=== PATIENT | male | born 1935 | race Caucasian/White ===

== ENCOUNTER 2022-10-16 17:28 | Emergency (ER) | payer MEDICARE, SELFPAY ==
[2022-10-16] VITALS (7 sets, daily range): BP systolic 124–157; BP diastolic 57–84; PULSE 74–93; RESP 16; TEMP 37.4; O2SAT 88–93; BMI 42.5
--- NOTE | 2022-10-16 18:33 | XRR_ITS ---
PROCEDURE INFORMATION: Exam: XR Chest Exam date and time: 10/16/2022 7:09 PM Age: 86 years old Clinical indication: Fever; Additional info: Fever AMS TECHNIQUE: Imaging protocol: Radiologic exam of the chest. Views: 1 view. COMPARISON: No relevant prior studies available. FINDINGS: Lungs: No consolidation. There is an azygos fissure. Pulmonary vascularity is within normal limits. Linear scar versus atelectasis left lung base. Pleural spaces: Unremarkable. No pleural effusion. No pneumothorax. Heart/Mediastinum: There is cardiomegaly. A pacemaker device is present, and its leads are in appropriate position. Bones/joints: No acute abnormality. XR/XR chest 1V portable 31011 IMPRESSION: No acute findings.
[2022-10-16] MEDS: sodium chloride 0.9% 1,000 ML 999 ML IV (19:24)
[2022-10-16 19:31] LABS: Basophils # 0.1 10^3/uL (0.0-0.1); Basophils % 0.4 %; Eosinophils # 0.2 10^3/uL (0.0-0.8); Eosinophils % 1.7 %; Hematocrit 40.8 % (42.0-52.0); Hemoglobin 13.2 g/dL (11.7-16.6); Lymphocytes # 2.4 10^3/uL (0.8-4.8); Lymphocytes % 18.8 %; Mean Corpuscular HGB Conc 32.4 g/dL (30.0-36.0); Mean Corpuscular Hemoglobin 29.9 pg (28.0-34.0); Mean Corpuscular Volume 92.5 fl (80-94); Mean Platelet Volume 9.2 fL (7.4-10.4); Monocytes % 7.9 %; Neutrophils # 8.85 10^3/uL (1.8-7.7); Neutrophils % 70.9 %; Nucleated Red Blood Cells % 0 %; Platelet Count 179 10^3/cmm (130-400); Red Blood Count 4.41 10^6/uL (4.1-5.3); Red Cell Distribution Width 14.9 % (12.1-15.1); White Blood Count 12.5 10^3/uL (4.0-10.0)
[2022-10-16] MEDS: cefTRIAXone 1,000 MG in sodium chloride 0.9% (plus) 50 ML 100 MG IV (19:45)
[2022-10-16 19:48] LABS: Alanine Aminotransferase 11 U/L (0-41); Albumin Level 3.6 g/dL (3.5-5.2); Alkaline Phosphatase 26 U/L (40-130); Aspartate Amino Transferase 13 U/L (0-40); Blood Urea Nitrogen 15 mg/dL (8-23); Calcium 9.1 mg/dL (8.5-10.5); Carbon Dioxide 28 mmol/L (22-29); Chloride 99 mmol/L (98-107); Globulin 2.8 g/dL (1.3-4.6); Glucose 150 mg/dL (65-115); Osmolality Calculated 280 mOsm/kg (285-295); Sodium 133 mmol/L (136-145); Total Bilirubin 0.6 mg/dL (0.15-1.2); Total Protein 6.4 g/dL (6.6-8.7)
[2022-10-16 19:49] LABS: Lactic Sepsis W/Reflex 1.3 mmol/L (0.5-2.2)
--- NOTE | 2022-10-16 19:56 | PC.NURSE ---
Placed patient on 2L NC due to oxygen saturation dropping to 88%.
--- NOTE | 2022-10-16 20:31 | ED_ITS ---
HPI - Weakness General: Chief complaint: Weakness Stated complaint: possible uti Time Seen by Provider: 10/16/22 18:03 Source: patient and family History of Present Illness: 86-year-old gentleman who presents with weakness and mild mental status changes. He had a 101.4 fever at home according to his . She gave him some Tylenol. He has had urosepsis twice in the last year, and she is worried about this, as his urine has smelled funny. No increased cough. Mild increase in shortness of breath. No sick contacts MD Complaint: generalized weakness and difficulty walking Onset (ago): hour(s) Duration: constant Location: generalized Migration: none Severity: moderate Relieving factors: none Exacerbating factors: exertion Associated symptoms: Reports confusion, dysuria, fever(s) and short of breath; Denies chest pain, chills, melena, decreased appetite, diaphoresis, headache(s), myalgias, nausea, syncope or vomiting Review of Systems Const: Reports: fever(s); Denies: chills or diaphoresis ENMT: Denies: throat pain Card: Denies: chest pain or syncope Resp: Reports: dyspnea; Denies: productive cough or non-productive cough GI: Denies: nausea, vomiting or melena : Reports: dysuria Skin/Breast: Denies: rash Neuro: Reports: confusion; Denies: headache(s) Physical Exam Const: COMMON NORMALS: no acute distress GENERAL APPEARANCE: cooperative; not ill appearing and not frail appearing HENMT: COMMON NORMALS: normocephalic, atraumatic and Normal external nose present HEAD & SCALP: normocephalic and atraumatic FACE & SINUS: normal facial exam and face symmetric NOSE: Normal external nose present Eye: COMMON NORMALS: Equal, round and reactive pupils present and EOMs intact bilaterally PUPIL: Yes Equal, round and reactive pupils present Neck/C-Spine: GENERAL: Yes trachea midline Chest: CHEST: Yes Symmetrical chest wall rise Resp: COMMON NORMALS: normal respiratory effort, No retractions, No use of accessory muscles and clear to auscultation bilaterally AUSCULTATION: clear to auscultation bilaterally Cardio: COMMON NORMALS: regular rate and regular rhythm RATE: regular rate RHYTHM: regular rhythm GI: COMMON NORMALS: Normal to inspection, nondistended, normoactive bowel sounds present Extremity: GENERAL: Yes edema (1-2+) Neuro: BHAVYA COMA SCALE: document GCS findings [place] coma scale eye opening: Spontaneous [place] coma scale verbal response: Confused Bhavya coma scale motor response: Obey commands Bhavya coma scale total score: 14 SENSORY EXAM: Yes extremities (intact) Psych: COMMON NORMALS: speech normal SPEECH: Yes normal speech Skin: COMMON NORMALS: no rashes or lesions noted GENERAL SKIN EXAM: no rashes or lesions noted Course Vital Signs: Vital signs: Vital Signs Temperature 99.4 F 10/16/22 17:53 Pulse Rate 80 10/16/22 21:00 Respiratory Rate 16 10/16/22 17:53 Blood Pressure 144/84 10/16/22 21:00 Pulse Oximetry 93 10/16/22 21:00 Oxygen Delivery Me thod Room Air 10/16/22 21:00 Oxygen Flow Rate 2 10/16/22 19:56 MDM - Weakness Medical Decision Making Patient is feeling better after fluid bolus and antibiotics. White blood cell count is 12. No left shift. Lactate is 1.3. Chest x-ray is negative. 55-80 whites on his urine sample with 2+ leukocyte Estrace. His BMP is not remarkable. With improvement in his symptoms, no vomiting, they would like to go home. We will treat with cefdinir for the next 10 days given history of recurrent urosepsis. Return for any worsening symptoms. Lab Data 10/16/22 19:24 10/16/22 19:24 Radiology Impressions Chest X-Ray 10/16/22 18:33 IMPRESSION: No acute findings. Laboratory Results WBC 12.5 10^3/uL (4.0-10.0) H 10/16/22 19:24 RBC 4.41 10^6/uL (4.1-5.3) 10/16/22 19:24 Hgb 13.2 g/dL (11.7-16.6) 10/16/22 19:24 Hct 40.8 % (42.0-52.0) L 10/16/22 19:24 MCV 92.5 fl (80-94) 10/16/22 19:24 MCH 29.9 pg (28.0-34.0) 10/16/22 19:24 MCHC 32.4 g/dL (30.0-36.0) 10/16/22 19:24 RDW 14.9 % (12.1-15.1) 10/16/22 19:24 Plt Count 179 10^3/cmm (130-400) 10/16/22 19:24 MPV 9.2 fL (7.4-10.4) 10/16/22 19:24 Neut % (Auto) 70.9 % 10/16/22 19:24 Lymph % (Auto) 18.8 % 10/16/22 19:24 [place] % (Auto) 7.9 % 10/16/22 19:24 Eos % (Auto) 1.7 % 10/16/22 19:24 Baso % (Auto) 0.4 % 10/16/22 19:24 Neut # (Auto) 8.85 10^3/uL (1.8-7.7) H 10/16/22 19:24 Lymph # (Auto) 2.4 10^3/uL (0.8-4.8) 10/16/22 19:24 [place] # (Auto) 1.0 10^3/uL (0.2-0.9) H 10/16/22 19:24 Eos # (Auto) 0.2 10^3/uL (0.0-0.8) 10/16/22 19:24 Baso # (Auto) 0.1 10^3/uL (0.0-0.1) 10/16/22 19:24 Nucleated RBC % (auto) 0 % 10/16/22 19:24 Nucleated RBCs # 0.0 /100WBC 10/16/22 19:24 Sodium 133 mmol/L (136-145) L 10/16/22 19:24 Potassium 4.0 mmol/L (3.5-5.1) 10/16/22 19:24 Chloride 99 mmol/L (98-107) 10/16/22 19:24 Carbon Dioxide 28 mmol/L (22-29) 10/16/22 19:24 Anion Gap 10.0 (5-19) 10/16/22 19:24 BUN 15 mg/dL (8-23) 10/16/22 19:24 Creatinine 1.2 mg/dL (0.7-1.2) 10/16/22 19:24 GFR Calculation Not Reportable 10/16/22 19:24 Glucose 150 mg/dL (65-115) H 10/16/22 19:24 Calculated Osmolality 280 mOsm/kg (285-295) L 10/16/22 19:24 Lactic Acid 1.3 mmol/L (0.5-2.2) 10/16/22 19:24 Calcium 9.1 mg/dL (8.5-10.5) 10/16/22 19:24 Total Bilirubin 0.6 mg/dL (0.15-1.2) 10/16/22 19:24 AST 13 U/L (0-40) 10/16/22 19:24 ALT 11 U/L (0-41) 10/16/22 19:24 Alkaline Phosphatase 26 U/L (40-130) L 10/16/22 19:24 Total Protein 6.4 g/dL (6.6-8.7) L 10/16/22 19:24 Albumin 3.6 g/dL (3.5-5.2) 10/16/22 19:24 Globulin 2.8 g/dL (1.3-4.6) 10/16/22 19:24 Urine Color Yellow (Yellow) 10/16/22 20:33 Urine Appearance Hazy (CLEAR) A 10/16/22 20:33 Urine pH 7 (5-7) 10/16/22 20:33 Ur Specific [place] 1.005 (1.005-1.030) 10/16/22 20:33 Urine Protein Trace (Negative) 10/16/22 20:33 Urine Glucose (UA) Norm (Normal) 10/16/22 20:33 Urine Ketones Negative (Negative) 10/16/22 20:33 Urine Blood Trace (Negative) H 10/16/22 20:33 Urine Nitrate Negative (Negative) 10/16/22 20:33 Urine Bilirubin Neg (Negative) 10/16/22 20:33 Urine Urobilinogen Norm mg/dL (Negative) 10/16/22 20:33 Ur Leukocyte Esterase 2+ (Negative) H 10/16/22 20:33 Urine RBC 0-4 /hpf (0-2) H 10/16/22 20:33 Urine WBC 55-80 /hpf (0-5) H 10/16/22 20:33 Ur Squamous Epith Cells 0-4 /hpf (0-5) H 10/16/22 20:33 Amorphous Sediment Not Reportable 10/16/22 20:33 Urine Bacteria Trace /hpf (NONE) 10/16/22 20:33 Discharge Plan Discharge Patient Disposition: Home Clinical Impression: Urinary tract infection Condition: Stable Prescriptions: New cefdinir 300 mg capsule 300 mg PO BID 10 Days Qty: 20 0RF Discharge Orders: Discharge ED (Routine); Ordered 10/16/22 Ordered By: Jluis Espinoza Referrals: Ryley Hamilton [Primary Care Provider] - Patient Instructions: Urinary Tract Infection in Older Adults (ED) Activity Restrictions/Additional Instructions: Return for worsening mental status or weakness, fever despite 2-3 more doses of antibiotics, vomiting liquids or medications, any other concerning symptoms Coding Level of Care Code 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
[2022-10-16 20:42] LABS: Bilirubin Urine Neg (Negative); Blood Urine Trace (Negative); Glucose Urine UA Norm (Normal); Ketones Urine Negative (Negative); Nitrate Urine Negative (Negative); Protein Urine Trace (Negative); Specific Gravity, Urine 1.005 (1.005-1.030); Urine Appearance Hazy (CLEAR); Urine Color Yellow (Yellow); pH Urine 7 (5-7)
[2022-10-16 20:43] LABS: Add Urine Microscopic? YES; Leukocyte Esterase Urine 2+ (Negative); Urobilinogen Urine Norm (Negative)
[2022-10-16 20:49] LABS: RBC Urine 0-4 /hpf (0-2); WBC Urine 55-80 /hpf (0-5)
[2022-10-16 20:50] LABS: Add Urine Culture? Yes; Bacteria Urine TRACE /hpf; Squamous Epithelial Cell Urine 0-4 /hpf (0-5)
== END 2022-10-16 21:45 | disposition home or self-care (01) ==
PROVIDERS: Family Medicine; Emergency Provider Emergency Medicine; PCP Family Medicine
DX: N39.0 Urinary tract infection, site not specified (principal)
CPT/HCPCS: 36415; 71045; 80053; 81001; 83605; 85025; 87040; 87077; 87086; 87186; 96361; 96365; 99284; J0696; J7030